=== PATIENT | male | born 1975 | race Caucasian/White ===

== ENCOUNTER 2017-04-28 09:23 | Emergency (ER) | payer SELFPAY ==
--- NOTE | 2017-04-28 10:23 | RAD ---
LEFT KNEE 4 VIEWS: Date: 04/28/17 HISTORY: Fall. Left knee pain. FINDINGS/IMPRESSION: No acute fracture or dislocation is seen. There is fullness in the suprapatellar pouch, suspicious fo r joint effusion. POS: [facility]
== END 2017-04-28 11:26 | disposition home or self-care (01) ==
LOC: ERS 09:23
DX: S83.512A Sprain of anterior cruciate ligament of left knee, initial encounter (principal); F17.210 Nicotine dependence, cigarettes, uncomplicated; W11.XXXA Fall on and from ladder, initial encounter